=== PATIENT | male | born 1960 | race Caucasian/White ===

== ENCOUNTER 2018-07-26 10:01 | Emergency (ER) | payer BC ==
[~2018-07-26] VITALS: Ht 175.3 cm; Wt 74.8 kg
[~2018-07-26 10:01] MED LIST: NEXIUM20 MG PO; NEXIUM40 MG PO; VITAMIN C1000 MG PO; VITAMIN D400 UNIT PO
--- NOTE | 2018-07-26 10:14 | NUR ---
ambulatory steady gait without difficulty. chging into gown. multiple warm blankets and belongings bag to pt.
[2018-07-26 10:25] LABS: BASOPHILS # (AUTO) 0.1 (0.0-0.1); BASOPHILS % 0.5 % (0.0-1.0); EOSINOPHILS # (AUTO) 0.1 (0.0-0.4); EOSINOPHILS % 0.6 % (0.0-6.0); HEMATOCRIT 45.7 % (38.2-49.6); HEMOGLOBIN 15.6 g/dL (14.0-18.0); LYMPHOCYTES # (AUTO) 2.4 (1.0-3.2); LYMPHOCYTES % 25.6 % (18.0-39.1); MEAN CORPUSCULAR HEMOGLOBIN 29.1 pg (28-32); MEAN CORPUSCULAR HGB CONC 34.1 g/dL (31-35); MEAN CORPUSCULAR VOLUME 85.1 fL (81-99); MONOCYTES # (AUTO) 0.8 (0.2-0.8); MONOCYTES % 8.4 % (4.4-11.3); NEUTROPHILS % 63.4 % (38.7-80.0); PLATELET COUNT 233 x10e3/uL (140-360); RED BLOOD COUNT 5.37 x10e6/uL (4.3-5.7); RED CELL DISTRIBUTION WIDTH 12.6 % (11.7-14.4)
[2018-07-26 10:28] LABS: CLARITY,URINE CLOUDY (CLEAR); COLOR,URINE YELLOW (YELLOW); LEUKOCYTE ESTERASE ,URINE NEGATIVE (NEGATIVE); NITRITE,URINE NEGATIVE (NEGATIVE)
[2018-07-26 10:29] LABS: BILIRUBIN,URINE NEGATIVE (NEGATIVE); KETONES,URINE NEGATIVE (NEGATIVE); PROTEIN,URINE DIPSTICK TRACE (NEGATIVE); URINE UROBILINOGEN 0.2 mg/dL (0.2 - 1)
[2018-07-26 10:40] LABS: EPITHELIAL CELLS,URINE RARE /LPF
[2018-07-26 10:53] LABS: ALANINE AMINOTRANSFERASE 21 IU/L (0-55); ALBUMIN 4.2 g/dL (3.5-5.0); ALBUMIN/GLOBULIN RATIO 1.4 (0.8-2.0); ALKALINE PHOSPHATASE 82 IU/L (40-150); ANION GAP 12.3 mmol/L (8-16); BLOOD UREA NITROGEN 18 mg/dL (7-26); BUN/CREATININE RATIO 16 (6-25); CALCIUM 10.2 mg/dL (8.4-10.2); CARBON DIOXIDE 27 mmol/L (22-29); CHLORIDE 105 mmol/L (98-107); CREATININE, SERUM 1.14 mg/dL (0.72-1.25); EST GLOMERULAR FILTRATION RATE > 60 ML/MIN (60-); GLUCOSE 127 mg/dL (74-118); POTASSIUM 4.3 mmol/L (3.5-5.1); SODIUM 140 mmol/L (136-145)
--- NOTE | 2018-07-26 12:04 | Diagnostic Imaging Report ---
EXAMINATION: CT of the abdomen and pelvis with contrast. TECHNIQUE: Spiral CT images of the abdomen and pelvis were performed from the lung bases to the lesser trochanters after the intravenous administration of 100 cc Isovue-370 and the oral administration of water. Coronal and sagittal reformatted images were obtained. COMPARISON: None. CLINICAL HISTORY:Right lower quadrant pain, concern for appendicitis DISCUSSION: ABDOMEN/PELVIS: LOWER THORAX:Subsegmental atelectasis in the dependent lower lobes right greater than left. HEPATOBILIARY: No focal hepatic lesions. No intra-or extrahepatic biliary ductal dilation. Radiopaque calculi in the dependent gallbladder without pericholecystic inflammation. SPLEEN: No splenomegaly. PANCREAS: No focal masses or ductal dilatation. ADRENALS: No adrenal nodules. KIDNEYS/URETERS: 6-7 mm right ureteropelvic junction calculus results in mild hydronephrosis. No significant perinephric inflammation. No additional renal, ureteral, or bladder calculi PELVIC ORGANS/BLADDER: Urinary bladder is unremarkable. Coarse prostatic calcifications. Prostate is mildly enlarged measuring 4.7 cm transversely. PERITONEUM/RETROPERITONEUM: No free air or fluid. LYMPH NODES: No pelvic sidewall, retroperitoneal, or mesenteric lymphadenopathy VESSELS: Abdominal aorta, major branch vessels, and iliac arterial systems are well-visualized and patent. Portal vein, splenic vein, and central superior mesenteric vein are patent GI TRACT: The sigmoid colon and rectum are collapsed and poorly evaluated, as are the transverse and ascending colon. No focal distention or wall thickening. Appendix is normal. No small bowel dilatation to suggest obstruction. BONES AND SOFT TISSUE: Fat-containing umbilical hernia. Otherwise no focal soft tissue abnormalities. No osseous destructive lesions. IMPRESSION: No CT evidence of acute appendicitis per clinical query. 6-7 mm right ureteropelvic junction calculus results in mild hydronephrosis. Cholelithiasis without CT evidence of acute cholecystitis. Signed by: Dr. Lenny Ramirez M.D. on 07/26/2018 12:00 PM
[2018-07-26] MEDS ORDERED: SODIUM CHLORIDE 0.9% 50ML 50 ML ONE (15:59)
[2018-07-26] MEDS ORDERED: IOPAMIDOL 370 MG/ML 200 ML INFUS..BTL INJ ONE (15:59)
[2018-08-01] MEDS ORDERED: PANTOPRAZOLE SO40 MG PO (10:48)
[2018-08-01] MEDS ORDERED: MULTI-VITAMIN1 EACH PO (10:49)
[2018-08-01] MEDS ORDERED: [UNRECOGNIZED DRUG - OTHER] PO (10:49)
== END 2018-07-26 12:45 | disposition home or self-care (01) ==
LOC: ER 10:01
DX: R10.31 Right lower quadrant pain (principal); K80.00 Calculus of gallbladder with acute cholecystitis without obstruction
CPT/HCPCS: 36415; 74177; 80053; 81001; 85025; 99284; Q9967

== ENCOUNTER → 2018-08-02 | Day surgery (SDC) | payer BC ==
--- NOTE | 2018-08-01 11:27 | Diagnostic Imaging Report ---
Exam: Abdominal film Clinical History: Preoperative study for stone procedure Comparison: CT abdomen and pelvis without contrast 07/26/2018 DISCUSSION: 6-7 mm calculus projects over the area of the right ureteropelvic junction, unchanged compared to prior CT. No additional suspicious calcifications project over the renal shadows or expected ureteral courses. Bilateral pelvic phleboliths. Bowel gas pattern is nonobstructive. Regional skeletal structures are intact. IMPRESSION: 6-7 mm right ureteropelvic junction calculus, unchanged in position compared to prior CT. Signed by: Dr. Lenny Ramirez M.D. on 08/01/2018 11:24 AM
[~2018-08-02] MED LIST changes: +BELLADONNA/OPIUM 60 MG SUPP PR ONE; +CEFTRIAXONE SOD 1 GM/NS 50 ML 50 ML IV ONE; +DEXAMETHASONE SOD PHOS INJ 4 MG/ML VIAL ONE; +FENTANYL CITRATE/PF 100MCG/2 ML INJ ONE; +IOPAMIDOL 610MG/1ML 300 MG/ML VIAL IV ONE; +LIDOCAINE HCL 2% LOCAL INJ 5 ML SDV VIAL INJ ONE; +MIDAZOLAM HCL 2 MG/2 ML VIAL ONE; +MULTI-VITAMIN1 EACH PO; +ONDANSETRON HCL INJ 2MG/ML 2ML 2 MG/ML VIAL ONE; +PANTOPRAZOLE SO40 MG PO; +PROPOFOL IV EMULSION 10 MG/ML 20 ML VIAL ONE; +SEVOFLURANE INHAL SOLN 250 ML PEN BTL ONE; +[UNRECOGNIZED DRUG - OTHER] PO
--- OUTSIDE RECORDS SUMMARY | 2018-08-02 05:36 | XMS REPORT ---
Author Author [facility] Address Unknown Phone Unavailable Care Team Providers Care Overlay Operator Name Role Phone EDDIE DELANEY Unavailable Unavailable Elena THORNTON Unavailable Unavailable Problems This patient has no known problems. Allergies, Adverse Reactions, Alerts This patient has no known allergies or adverse reactions. Medications This patient has no known medications. Results Test Description Test Time Test Comments Text Results Atomic Results Result Comments ABDOMEN-1VIEW ([facility]) 2018-08-01 11:22:00 [place] [address] Patient Name: ZENAIDA SALEH MR #: [id number] : 1960 Age/Sex: 58/M Req #: [id number] Adm Physician: Ordered by: EDDIE DELANEY MD Report #: [id number] Location: OR Room/Bed: Procedure: [id number] DX/ABDOMEN-1VIEW ([facility]) Exam Date: 08/01/18 Exam Time: 1010 REPORT STATUS: Signed Exam: Abdominal film Clinical History: Preop erative study for stone procedure Comparison: CT abdomen and pelvis without contrast 07/26/2018 DISCUSSION: 6-7 mm calculus projects over the area of the right ureteropelvic junction, unchanged compared to prior CT. No additional suspicious calcifications project over the renal shadows or expected ureteral courses. Bilateral pelvic phleboliths. Bowel gas pattern is nonobstructive. Regional skeletal structures are intact. IMPRESSION: 6-7 mm right ureteropelvic junction calculus, unchanged in position compared to prior CT. Signed by: Dr. Nicole Torres M.D. on 08/01/2018 11:24 AM Dictated By: NICOLE TORRES MD 23 Transcribed By: MOJGAN on 08/01/181123 COPY TO: EDDIE DELANEY MD CT ABDOMEN/PELVIS W 2018-07-26 11:49:00 [place] [address] Patient Name: ZENAIDA SALEH MR #: [id number] : 1960 Age/Sex: 58/M Req #: [id number] Adm Physician: Ordered by: ARIANA THORNTON MD Report #: [id number] Location: ER Room/Bed: Procedure: [id number] CT/CT ABDOMEN/PELVIS W Exam Date: Exam Time: REPORT STATUS: Signed EXAMINATION: CT of the abdomen and pelvis with contrast. TECH NIQUE: Spiral CT images of the abdomen and pelvis were performed from the lung bases to the lesser trochanters after the intravenous administration of 100 cc Isovue-370 and the oral administration of water. Coronal and sagittal reformatted images were obtained. COMPARISON: None. CLINICAL HISTORY:Right lower quadrant pain, concern for appendicitis DISCUSSION: ABDOMEN/PELVIS: LOWER THORAX:Subsegmental atelectasis in the dependent lower lobes right greater than left. HEPATOBILIARY: No focal hepatic lesions. No intra-or extrahepatic biliary ductal dilation. Radiopaque calculi in the dependent gallbladder without pericholecystic inflammation. SPLEEN: No splenomegaly. PANCREAS: No focal masses or ductal dilatation. ADRENALS: No adrenal nodules. KIDNEYS/URETERS: 6-7 mm right ureteropelvic junction calculus results in mild hydronephrosis. No significant perinephric inflammation. No additional renal, ureteral, or bladder calculi PELVIC ORGANS/BLADDER: Urinary bladder is unremarkable. Coarse prostatic calcifications. Prostate is mildly enlarged measuring 4.7 cm transversely. PERITONEUM/RETROPERITONEUM: No free air or fluid. LYMPH NODES: No pelvic sidewall, retroperitoneal, or mesenteric lymphadenopathy VESSELS: Abdominal aorta, major branch vessels, and iliac arterial systems are well-visualized and patent. Portal vein, splenic vein, and central superior mesenteric vein are patent GI TRACT: The sigmoid colon and rectum are collapsed and poorly evaluated, as are the transverse and ascending colon. No focal distention or wall thickening. Appendix is normal. No small bowel dilatation to suggest obstruction. BONES AND SOFT TISSUE: Fat-containing umbilical hernia. Otherwise no focal soft tissue abnormalities. No osseous destructive lesions. IMPRESSION: No CT evidence of acute appendicitis per clinical query. 6-7 mm right ureteropelvic junction calculus results in mild hydronephrosis. Cholelithiasis without CT evidence of acute cholecystitis. Signed by: Dr. Nicole Torres M.D. on 07/26/2018 12:00 PM Dictated By: NICOLE TORRES MD 1200 Transcribed By: MOJGAN on 07/26/18 1200 COPY TO: ARIANA THORNTON MD
[2018-08-02 08:40] VITALS: BP 122/81
--- NOTE | 2018-08-02 13:40 | Operative Report ---
DATE OF PROCEDURE: 08/02/2018 SURGEON: Avinash Hu MD PREOPERATIVE DIAGNOSIS: Right ureteropelvic junction calculi, 8 mm. POSTOPERATIVE DIAGNOSIS: Right ureteropelvic junction calculi, 8 mm. PROCEDURES: 1. Staged shockwave lithotripsy. 2. Supervision of fluoroscopy. ANESTHESIA: General. ESTIMATED BLOOD LOSS: Minimal. COMPLICATIONS: None. INDICATIONS: Mr. Raymundo is a 58-year-old male with a history of kidney stones. He has had it for quite some time. He and I had a long discussion about alternatives, risks, and benefits including doing nothing, shockwave lithotripsy, ureteroscopy, percutaneous surgery or open surgery. He voiced understanding of the options, the alternatives, risks and benefits. He elected to proceed with shockwave lithotripsy. He voiced understanding of stenting and elected to avoid this unless absolutely necessary. PROCEDURE IN DETAIL: After informed consent was obtained, the patient was taken to the operative suite, placed supine on the operating table, underwent general anesthesia by the service. The stone was localized in the X, Y and Z planes. Treatment was performed per the treatment report. The patient tolerated the procedure well, was transported to recovery room in excellent condition with no untoward effects noted. Supervision of fluoroscopy: I was present for the entire procedure and I supervised fluoroscopy. There was no radiologist present. Dosage per treatment report. Avinash Hu MD ES/MODL /[id number] cc: Tejinder Ho MD
== END | disposition home or self-care (01) ==
LOC: OR 05:00
PROVIDERS: ATTEND Urology
DX: N13.2 Hydronephrosis with renal and ureteral calculous obstruction (principal); K21.9 Gastro-esophageal reflux disease without esophagitis; N40.1 Benign prostatic hyperplasia with lower urinary tract symptoms; Z01.810 Encounter for preprocedural cardiovascular examination; Z01.818 Encounter for other preprocedural examination
CPT/HCPCS: 50590; 74018; 93005; J0696; J1100; J2001; J2250; J2405; J2704

== ENCOUNTER → 2018-09-09 | Outpatient (CLI) | payer BC ==
[~2018-09-09] MED LIST changes: -BELLADONNA/OPIUM 60 MG SUPP PR ONE; -CEFTRIAXONE SOD 1 GM/NS 50 ML 50 ML IV ONE; -DEXAMETHASONE SOD PHOS INJ 4 MG/ML VIAL ONE; -FENTANYL CITRATE/PF 100MCG/2 ML INJ ONE; -IOPAMIDOL 610MG/1ML 300 MG/ML VIAL IV ONE; -LIDOCAINE HCL 2% LOCAL INJ 5 ML SDV VIAL INJ ONE; -MIDAZOLAM HCL 2 MG/2 ML VIAL ONE; -ONDANSETRON HCL INJ 2MG/ML 2ML 2 MG/ML VIAL ONE; -PROPOFOL IV EMULSION 10 MG/ML 20 ML VIAL ONE; -SEVOFLURANE INHAL SOLN 250 ML PEN BTL ONE
--- NOTE | 2018-09-10 01:02 | Diagnostic Imaging Report ---
Hepatobiliary Scan with Gallbladder Ejection Fraction Clinical information: Abdominal pain; abdominal bloating Report: Following intravenous administration of 7 millicuries of Tc-99m mebrofenin, dynamic images of the abdomen in the anterior projection were obtained through 30 minutes. Sincalide (CCK analog) 1.6 micrograms was administered intravenously over 30 minutes with additional imaging for determination of gallbladder ejection fraction. Perfusion to the liver is normal. Extraction of tracer from the blood pool by the liver parenchyma is normal. Tracer is seen promptly within the biliary tract. The gallbladder begins to fill by 18 minutes post-injection of tracer and fills adequately. Tracer is seen in the small bowel by 17 minutes. The gallbladder ejection fraction with administration of sincalide is 64% (normal greater than 40%). Impression: 1. Filling of the gallbladder excludes the diagnosis of acute cystic duct obstruction/acute cholecystitis. 2. Normal gallbladder ejection fraction of 64% does not support the clinical diagnosis of chronic cholecystitis/gallbladder dyskinesia. Signed by: Dr. Mai Parsons M.D. on 09/10/2018 12:59 AM
== END ==
LOC: NM 13:31
PROVIDERS: ATTEND Internal Medicine Gastroenterology
DX: R10.9 Unspecified abdominal pain (principal); R14.0 Abdominal distension (gaseous)
CPT/HCPCS: 78227; A9537

== ENCOUNTER → 2018-09-21 | Day surgery (SDC) | payer BC ==
[~2018-09-21] MED LIST changes: +FENTANYL CITRATE/PF 100MCG/2 ML INJ ONE; +HYOSCYAMINE 0.125 MG TAB ONE; +LIDOCAINE HCL 2% LOCAL INJ 5 ML SDV VIAL INJ ONE; +MIDAZOLAM HCL 2 MG/2 ML VIAL ONE; +PROPOFOL IV EMULSION 10 MG/ML 50 ML VIAL ONE
--- NOTE | 2018-09-21 14:32 | Operative Report ---
DATE OF PROCEDURE: 09/21/2018 SURGEON: Jovanny Viera MD PROCEDURE: Esophagogastroduodenoscopy with biopsies and colonoscopy with polypectomy. INDICATIONS FOR EGD: History of acid reflux. INDICATIONS FOR COLONOSCOPY: Surveillance colonoscopy, personal history of colon polyps. MEDICATION: The patient was done under MAC, please see anesthesiologist's note. PROCEDURE IN DETAIL: With the patient in left lateral decubitus position, flexible fiberoptic Olympus gastroscope was introduced into the esophagus under direct visualization without any difficulty. Two minute nodules were noted in the cervical esophagus and those were excised with the cold biopsy forceps. The mucosa overlying the distal esophagus revealed some mild inflammatory changes. The scope was then advanced with ease into the stomach and mucosa overlying the antrum and the body revealed some patchy erythema and [id number] edema and biopsies were obtained and sent to stain for H pylori. Several hyperplastic-appearing polyps were noted in the body of the stomach and some were partially excised with cold biopsy forceps. Pylorus was of normal contour and shape, it was intubated with ease and the scope was advanced all the way to the second portion of the duodenum. The scope was then withdrawn slowly and mucosa overlying the proximal second portion and the duodenal bulb appeared to be within normal limits. The scope was then withdrawn back into the stomach and retroflexed and mucosa overlying the fundus and the cardia appeared to be within normal limits. The scope was then straightened out, it was subsequently withdrawn. The patient tolerated procedure well. IMPRESSION: 1. Minute nodules, cervical esophagus, excised with the cold biopsy forceps. 2. Distal esophagitis, mild. 3. Gastritis, biopsied, biopsies sent to stain for H pylori. 4. Gastric polyps, body, some partially excised with the cold biopsy forceps. PLAN: Follow up histology. Initiate Protonix 40 mg one p.o. q.a.m. a.c. PROCEDURE IN DETAIL: The patient was then turned around. After adequate lubrication of the anal canal, the flexible fiberoptic Olympus colonoscope was inserted into the rectum with ease and advanced all the way to the cecum. The scope was then withdrawn slowly and mucosa overlying the cecum and ascending colon appeared to be within normal limits. One polyp was removed per cold polypectomy snare. The rest of the transverse and descending, sigmoid, and rectum grossly appeared to be within normal limits. The scope was then retroflexed into the distal rectum and small internal hemorrhoids were noted, none of which was actively bleeding. The scope was then straightened out, it was subsequently withdrawn. The patient tolerated procedure well. IMPRESSION: 1. Transverse colon polyp, removed per cold snare. 2. Internal hemorrhoids, none actively bleeding. PLAN: Follow up histology. Initiate high-fiber, low-fat diet. Initiate high-fiber supplement. The patient might benefit from a followup colonoscopy in 5 years. Jovanny Viera MD [facility] [place] /[id number] cc: Tejinder Ho MD
== END | disposition home or self-care (01) ==
LOC: OR 07:27
PROVIDERS: ATTEND Internal Medicine Gastroenterology
DX: K21.0 Gastro-esophageal reflux disease with esophagitis (principal); D12.3 Benign neoplasm of transverse colon; K31.7 Polyp of stomach and duodenum; K29.70 Gastritis, unspecified, without bleeding; K22.8 Other specified diseases of esophagus; K64.8 Other hemorrhoids; K80.20 Calculus of gallbladder without cholecystitis without obstruction; N40.0 Benign prostatic hyperplasia without lower urinary tract symptoms
CPT/HCPCS: 43239; 45385; 84152; J2001; J2250; J2704; J3010